=== PATIENT | male | born 1960 | race Caucasian/White ===

== ENCOUNTER → 2017-04-10 | Outpatient (CLI) | payer OTHER ==
[~2017-04-10] MED LIST: DIAZEPAM 10 MG TABLET.; IOHEXOL 350 MG/ML 100 ML VIAL.; IOHEXOL 350 MG/ML 50 ML VIAL.; IV NORMAL SALINE 1000ML BAG 1,000 ML; IV NORMAL SALINE 500ML BAG 500 ML; LIDOCAINE 1% Multi-Dose 20 ML VIAL.; METOPROLOL TARTRATE 5 MG/5 ML VIAL.; MIDAZOLAM HCL/PF 2 MG/2 ML VIAL.; fentaNYL PF VIAL 100 MCG/2 ML VIAL
== END | disposition home or self-care (01) ==
LOC: PCVCINTER 07:21
DX: I25.10 Atherosclerotic heart disease of native coronary artery without angina pectoris (principal); E78.5 Hyperlipidemia, unspecified
CPT/HCPCS: 75625; 93458; 93926; 99152; 99153; C1751; C1760; C1894; J1644; J2250; J3010; J3490; J7030; J7040; Q9967